=== PATIENT | male | born 1950 | race African-American/Black ===

== ENCOUNTER → 2017-04-22 | Outpatient (CLI) | payer MEDICARE, BC ==
[~2017-04-22] MED LIST: AMLO1CAP PO; ATOR40TA70 PO; CHOL100044 PO; CLOP75TA16 PO; FOLI-43 PO; METO50TA5 PO; OMEG1CAP17 PO; TAMS0.4C31 PO; UBID200C18 PO
== END | disposition home or self-care (01) ==
LOC: US 08:34
PROVIDERS: ATTEND Internal Medicine Nephrology
DX: N18.3 Chronic kidney disease, stage 3 (moderate) (principal); N28.1 Cyst of kidney, acquired
CPT/HCPCS: 76700